=== PATIENT | female | born 1980 | race African-American/Black ===

== ENCOUNTER 2023-11-07 15:40 | Emergency (ER) | payer OTHER ==
[2023-11-07 15:55] VITALS: RESP 20; BMI 32.9
[2023-11-07 17:51] LABS: BASO % 0.7 % (0-2.0); EOS % 6.1 % (0-4.5); HEMATOCRIT 39.9 % (32.4-45.2); HEMOGLOBIN 12.8 GM/dL (10.7-15.3); LYMPH % 21.5 % (8-40); MCH 27.5 pg (25.7-33.7); MCHC 32.1 g/dl (32.0-36.0); MEAN CELL VOLUME 85.8 fl (80-96); MEAN PLT VOLUME 7.7 fl (7.5-11.1); MONO % 5.9 % (3.8-10.2); NEUT % 65.8 % (42.8-82.8); PLATELET COUNT 341 10^3/uL (134-434); RBC 4.65 M/mm3 (3.60-5.2); RDW 17.5 % (11.6-15.6); WHITE BLOOD COUNT 9.7 K/mm3 (4.0-10.0)
[2023-11-07 19:20] LABS: ALK PHOS 76 U/L (45-117); BILIRUBIN,TOTAL 0.2 mg/dL (0.2-1); CREATININE 0.6 mg/dL (0.55-1.3); SGOT/AST 26 U/L (15-37); SGPT/ALT 27 U/L (13-61); TOT PROT 7.4 g/dl (6.4-8.2)
[2023-11-07 19:26] LABS: ALBUMIN 3.5 g/dl (3.4-5.0); ANION GAP 5 mmol/L (4-13); BLOOD UREA NITROGEN 10.1 mg/dL (7-18); CALCIUM 9.4 mg/dL (8.5-10.1); CHLORIDE 106 mmol/L (98-107); CO2 28 mmol/L (21-32); GLUCOSE,RANDOM 45 mg/dL (74-106); POTASSIUM 4.4 mmol/L (3.5-5.1); SODIUM 139 mmol/L (136-145)
[2023-11-07] MEDS ORDERED: METHOTREXATE SODIUM/PF 25 MG/ML VIAL IM ONE (19:26)
[2023-11-07 22:00] VITALS: BP 122/78; PULSE 78; TEMP 97.9
== END 2023-11-07 21:58 | disposition home or self-care (01) ==
LOC: JER 15:40
PROC: 3E023GC Introduction of Other Therapeutic Substance into Muscle, Percutaneous Approach (ICD-10-PCS; principal; 2023-11-07)
DX: O00.90 Unspecified ectopic pregnancy without intrauterine pregnancy (principal)
CPT/HCPCS: 36415; 80053; 82962; 84702; 85025; 86850; 86900; 86901; 99284-25; J9260